=== PATIENT | male | born 1990 | race Caucasian/White ===

== ENCOUNTER 2022-10-27 17:40 | Emergency (ER) | payer MEDICARE, MEDICAID ==
[2022-10-27 18:23] LABS: BASOPHILS # (AUTO) 0.1 10^3/uL (0.0-0.1); BASOPHILS % (AUTO) 0.8 %; EOSINOPHILS # (AUTO) 0.1 10^3/uL (0.0-0.7); EOSINOPHILS % (AUTO) 1.1 %; HCT - HEMATOCRIT 45.8 % (42.0-52.0); HGB - HEMOGLOBIN 16.1 g/dL (14.0-18.0); LYMPHOCYTES # (AUTO) 1.8 10^3/uL (1.5-3.5); LYMPHOCYTES % (AUTO) 25.1 %; MEAN CORPUSCULAR HEMOGLOBIN 31.6 pg (27.0-31.0); MEAN CORPUSCULAR HGB CONC 35.2 g/dL (32.0-36.0); MEAN PLATELET VOLUME 9.8 fL (7.4-11.4); MONOCYTES # (AUTO) 0.8 10^3/uL (0.0-1.0); MONOCYTES % (AUTO) 10.5 %; NEUTROPHILS # (AUTO) 4.5 10^3/uL (1.5-6.6); NEUTROPHILS % (AUTO) 62.4 %; PLT - PLATELET COUNT 257 10^3/uL (130-450); RED BLOOD COUNT 5.09 10^6/uL (4.70-6.10); RED CELL DISTRIBUTION WIDTH 12.1 % (12.0-15.0); WHITE BLOOD COUNT 7.2 x10^3/uL (4.8-10.8)
--- NOTE | 2022-10-27 18:28 | ED Physician Documentation ---
PD HPI MHE - Stated complaint Stated Complaint: MHE - Chief complaint Chief Complaint: MHE - History obtained from History obtained from: Patient - History of Present Illness Primary symptom: Suicidal ideation, Depression Pain level max: 0 Pain level now: 0 - Additional information Additional information: Patient is a 32-year-old male who presents to the emergency department complaining of ongoing depression for several years. He states he has been having increasing suicidal ideation as well. He thinks that he may benefit from inpatient psychiatric care. He states that he has lost his job, his home and all of his financial savings. He is on several medications, but is unsure if they are helping or not. He states he has been feeling very anxious recently. He does have a history of cutting, but is not cutting currently. Patient states that he has not attempted suicide, but has thought about jumping off the bridge. Review of Systems Constitutional: denies: Fever, Chills Respiratory: denies: Cough GI: denies: Nausea, Vomiting, Diarrhea Skin: denies: Rash Musculoskeletal: denies: Back pain PD PAST MEDICAL HISTORY - Past Medical History Past Medical History: Yes Psych: Depression, Anxiety - Present Medications Home Medications: Ambulatory Orders Medication Instructions Recorded Confirmed Buspirone HCl 10 mg PO BID 10/27/22 10/27/22 Gabapentin [Gralise] 300 mg PO BID 10/27/22 10/27/22 Guanfacine HCl [Intuniv] 1 mg PO DAILY 10/27/22 10/27/22 Methylphenidate HCl [Ritalin LA] 36 mg PO BID 10/27/22 10/27/22 Mirtazapine 15 mg PO HS 10/27/22 10/27/22 Topiramate [Topamax] 25 mg PO BID 10/27/22 10/27/22 lamoTRIgine [LaMICtal] 150 mg PO DAILY 10/27/22 10/27/22 risperiDONE [Risperdal] 3 mg PO HS 10/27/22 10/27/22 - Allergies Allergies/Adverse Reactions: Allergies Allergy/AdvReac Type Severity Reaction Status Date / Time Sulfa (Sulfonamide Allergy Nausea Verified 10/27/22 18:02 Antibiotics) - Living Situation Living Arrangement: reports: At home - Social History Does the pt have substance abuse?: No PD ED PE NORMAL - Vitals Vital signs reviewed: Yes - General General: Alert and oriented X 3, No acute distress, Well developed/nourished - HEENT HEENT: PERRL, Moist mucous membranes - Neck Neck: Supple, no meningeal sign - Cardiac Cardiac: RRR, Strong equal pulses - Respiratory Respiratory: No respiratory distress, Clear bilaterally - Abdomen Abdomen: Soft, Non tender, Non distended - Back Back: No spinal TTP - Derm Derm: Warm and dry - Extremities Extremities: No edema, No calf tenderness / cord - Neuro Neuro: Alert and oriented X 3, row boss hoeing 2-12 intact, No motor deficit, No sensory deficit, Normal speech - Psych Psych: Normal mood, Normal affect Results - Vitals Vitals: Vital Signs - 24 hr 10/27/22 10/27/22 17:47 20:31 Temperature 36.6 C 37.1 C Heart Rate 106 H 90 Respiratory 20 16 Rate Blood Pressure 167/99 H 127/73 O2 Saturation 97 95 Oxygen O2 Source Room air - EKG (time done) 2001 EKG releavant findings:: EKG personally interpreted by author of this note. Relevant findings are: Rate: Rate (enter#) (85) Rhythm: NSR [place]: Normal Intervals: Normal MN QRS: Normal Ischemia: Normal ST segments - Labs Labs: Laboratory Tests 10/27/22 10/27/22 10/27/22 18:15 18:15 18:15 WBC 7.2 RBC 5.09 Hgb 16.1 Hct 45.8 MCV 90.0 MCH 31.6 H MCHC 35.2 RDW 12.1 Plt Count 257 MPV 9.8 Neut # (Auto) 4.5 Lymph # (Auto) 1.8 [place] # (Auto) 0.8 Eos # (Auto) 0.1 Baso # (Auto) 0.1 Absolute Nucleated RBC 0.00 Nucleated RBC % 0.0 Sodium 139 Potassium 4.0 Chloride 105 Carbon Dioxide 25 Anion Gap 9.0 BUN 12 Creatinine 0.9 Estimated GFR (MDRD) 98 Glucose 119 H Calcium 9.8 Total Bilirubin 0.4 AST 31 ALT 34 Alkaline Phosphatase 81 Total Protein 7.6 Albumin 4.3 Globulin 3.3 Albumin/Globulin Ratio 1.3 Lipase 40 TSH 1.13 Urine Color Urine Clarity Urine pH Ur Specific [place] Urine Protein Urine Glucose (UA) Urine Ketones Urine Occult Blood Urine Nitrite Urine Bilirubin Urine Urobilinogen Ur Leukocyte Esterase Ur Microscopic Review Urine Culture Comments Salicylates < 6.0 Urine Opiates Screen Ur Oxycodone Screen Urine Methadone Screen Ur Propoxyphene Screen Acetaminophen < 10 L Ur Barbiturates Screen Ur Tricyclics Screen Ur Phencyclidine Scrn Ur Amphetamine Screen U Methamphetamines Scrn U Benzodiazepines Scrn Urine Cocaine Screen U Cannabinoids Screen Ethyl Alcohol < 5.0 SARS-CoV-2 (PCR) 10/27/22 10/27/22 18:30 18:30 WBC RBC Hgb Hct MCV MCH MCHC RDW Plt Count MPV Neut # (Auto) Lymph # (Auto) [place] # (Auto) Eos # (Auto) Baso # (Auto) Absolute Nucleated RBC Nucleated RBC % Sodium Potassium Chloride Carbon Dioxide Anion Gap BUN Creatinine Estimated GFR (MDRD) Glucose Calcium Total Bilirubin AST ALT Alkaline Phosphatase Total Protein Albumin Globulin Albumin/Globulin Ratio Lipase TSH Urine Color YELLOW Urine Clarity CLEAR Urine pH 7.0 Ur Specific [place] 1.010 Urine Protein NEGATIVE Urine Glucose (UA) NEGATIVE Urine Ketones NEGATIVE Urine Occult Blood NEGATIVE Urine Nitrite NEGATIVE Urine Bilirubin NEGATIVE Urine Urobilinogen 0.2 (NORMAL) Ur Leukocyte Esterase NEGATIVE Ur Microscopic Review NOT INDICATED Urine Culture Comments NOT INDICATED Salicylates Urine Opiates Screen NEGATIVE Ur Oxycodone Screen NEGATIVE Urine Methadone Screen NEGATIVE Ur Propoxyphene Screen NEGATIVE Acetaminophen Ur Barbiturates Screen NEGATIVE Ur Tricyclics Screen NEGATIVE Ur Phencyclidine Scrn NEGATIVE Ur Amphetamine Screen NEGATIVE U Methamphetamines Scrn NEGATIVE U Benzodiazepines Scrn NEGATIVE Urine Cocaine Screen NEGATIVE U Cannabinoids Screen NEGATIVE Ethyl Alcohol SARS-CoV-2 (PCR) NOT DETECTED PD Medical Decision Making - ED course Complexity details: reviewed results, re-evaluated patient, considered differential, d/w patient, d/w sustainable design consultant ED course: 32-year-old male with suicidal ideation and depression. Medically clear for psychiatric care. No acute findings on CBC, ER abdominal panel, urine toxicol ogy, blood toxicology or urinalysis. Telepsychiatry was consulted, Dr. Snell. Recommends inpatient treatment. Patient is voluntary. We will attempt to look for placement. [facility] except the patient, Dr. Johnson. COBRA forms completed. Patient will be transferred. This document was made in part using voice recognition software. While efforts are made to proofread this document, sound alike and grammatical errors may occur. Departure - Departure Disposition: 65 Psych Hosp/Unit DC/Xfer Clinical Impression: Suicidal ideation Depression Qualifiers: Depression Type: unspecified Qualified Code(s): F32.A - Depression, unspecified Condition: Stable
[2022-10-27 18:33] LABS: MUDS CUTOFF CONCENTRATIONS CUTOFF CONC BELOW:
[2022-10-27 18:36] LABS: ACETAMINOPHEN < 10 ug/mL (10-30); ALBUMIN 4.3 g/dL (3.2-5.5); ALBUMIN/GLOBULIN RATIO 1.3 (1.0-2.2); ALKALINE PHOSPHATASE 81 IU/L (42-121); ALT ALANINE AMINOTRANSFERASE 34 IU/L (10-60); AST ASPARTATE AMINOTRANSFERASE 31 IU/L (10-42); BILIRUBIN,TOTAL 0.4 mg/dL (0.2-1.0); BUN - BLOOD UREA NITROGEN 12 mg/dL (6-20); CALCIUM 9.8 mg/dL (8.5-10.3); CARBON DIOXIDE - CO2 25 mmol/L (21-32); CHLORIDE 105 mmol/L (101-111); CREATININE 0.9 mg/dL (0.6-1.2); ETOH - ETHANOL < 5.0 mg/dL; GFR - MDRD 98 (>89); GLUCOSE 119 mg/dL (70-100); LIPASE 40 U/L (22-51); SALICYLATE < 6.0 mg/dL; SODIUM 139 mmol/L (135-145); TOTAL PROTEIN 7.6 g/dL (6.7-8.2)
[2022-10-27 18:44] LABS: BILIRUBIN,URINE NEGATIVE (NEGATIVE); GLUCOSE, URINE (UA) NEGATIVE (NEGATIVE); KETONES,URINE (UA) NEGATIVE (NEGATIVE); LEUKOCYTE ESTERASE, URINE NEGATIVE (NEGATIVE); NITRITE,URINE NEGATIVE (NEGATIVE); OCCULT BLOOD,URINE NEGATIVE (NEGATIVE); PROTEIN,URINE NEGATIVE (NEGATIVE); UROBILINOGEN,URINE 0.2 (NORMAL) E.U./dL (NORMAL)
[2022-10-27 18:47] LABS: CLARITY,URINE CLEAR (CLEAR)
[2022-10-27 18:56] LABS: AMPHETAMINE SCREEN,URINE NEGATIVE (NEGATIVE); BARBITURATE SCREEN,UR NEGATIVE (NEGATIVE); BENZODIAZEPINES SCREEN, URINE NEGATIVE (NEGATIVE); COCAINE SCREEN URINE NEGATIVE (NEGATIVE); METHADONE SCREEN, URINE NEGATIVE (NEGATIVE); METHAMPHETAMINES SCREEN, URINE NEGATIVE (NEGATIVE); OPIATE SCREEN, URINE NEGATIVE (NEGATIVE); OXYCODONE SCREEN, URINE NEGATIVE (NEGATIVE); PROPOXYPHENE SCREEN, URINE NEGATIVE (NEGATIVE); THC CANNABINOID SCREEN, URINE NEGATIVE (NEGATIVE); TRICYCLIC ANTIDEPRESSANT,URINE NEGATIVE (NEGATIVE)
[2022-10-27] MEDS: DULoxetine 20 MG CAPSULE PO SCH (19:52)
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
[2022-10-27 22:22] VITALS: BP 164/95
== END 2022-10-27 23:05 ==
LOC: ED 17:40
DX: F33.2 Major depressive disorder, recurrent severe without psychotic features (principal); Z20.822 Contact with and (suspected) exposure to COVID-19
CPT/HCPCS: 36415; 80053; 80306; 80307; 81003; 83690; 84443; 85025; 87635; 93005; 99285; A9270; G0425; G0480; Q3014; 80320; 80329; 81001; 87086

== ENCOUNTER 2024-04-26 15:18 | Outpatient (CLI) | payer MEDICARE, MEDICAID ==
--- NOTE | 2024-04-26 15:42 | Sleep Patient Instructions ---
Sleep Center Visit Summary - Patient Visit Information Reason for Visit: Initial consult for evaluation of sleep disordered breathing and other sleep issues. - Patient Instructions Instructions Attached: Sleep Study, Sleep Study Home Monitor Additional Instructions: You will be completing a sleep study, either an in-lab polysomnography (PSG) or home sleep study (HST). You will follow-up in the sleep care office after the sleep study is completed to hear the results and talk about therapy, if needed. You will be called by our office staff to schedule this appointment, but you may contact us with any questions. - Clinic Information Contact: [facility] [address] [place] [id number] [email or web address] T: [phone]
--- NOTE | 2024-04-26 15:46 | SLEEP CARE CONSULTATION ---
Information from patient questionnaire entered by Scotty Snell. I have reviewed and concur with the information entered by Scotty Snell. This document represents the service I personally performed and the decisions made by me, Radha Tijerina ARNP. History of Present Illness Service Date and Time: 04/26/2024 1518 Reason for Visit: New patient Chief Complaint: reports: Excessive daytime sleepiness Date of Onset: 2011 Usual bedtime: MIDNIGHT Time it takes to fall asleep: 30 MIN Snores at night: Yes (I think so) Observed to quit breathing while asleep: No Sleeps alone due to snoring: No (N/A) Number of times waking at night: 1 Reasons for waking at night: reports: Bathroom. denies: Choking, Snoring, Gasping for air Toss, Turn, or Twitch while sleeping: No (Not sure) Recalls having dreams: Yes Usually gets out of bed at: Noon Feels refreshed in the morning: Yes (Somewhat) Morning headache: No Sleepy or fatigued during the day: Yes (Sleepy) Ever fallen asleep while driving: No Takes day naps: Yes (on days off, 1-2 times a day) Dreams during day naps: Yes Prior sleep studies: Yes Year and Where: 2011 [facility] - neg Additional HPI information: I had the pleasure of seeing PURVI DUVAL today regarding the possibility of him having a sleep disorder. His current complaint is excessive daytime sleepiness. 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 His father encouraged him to continue but he hurt himself more. He says since this time he is having problems with his sleep. He says he was going to college and had to go out to his car to take a nap between classes to be able to get through the day. Currently, he is very tired during the day but does not have to have so many naps. He has low energy. He is taking Nuvigil daily but does not feel it is doing much for him. He does not feel it is effective in keeping him awake anymore. He says he knows he snores. He has gained about 30 pounds in the last 5 years. He said he had a previous sleep study which was negative for sleep disordered breathing. - Parasomnia Symptoms Ever been unable to move upon waking from sleep: No Walks in sleep: No Talks in sleep: No Ever acted out dreams in sleep: No Ever felt weak in the knees when startled or emotional: No Bothered by creepy, crawly, restless sensations in legs: No Problems with memory or concentration: Yes (Somewhat) Subjective Initial [place] Sleepiness Scale score: 12 (04/26/24) Past Medical History Past Medical History: reports: Other (High cholesterol; low testosterone) Social History The patient's occupation is unemployed. Patient is single and lives in [place]. Have you smoked in the past 12 months: Yes (vaped) Years of smokin Alcohol use: No Caffeine use: Yes Caffeine amount and frequency: Can a day Family History Family history of sleep disordered breathing: Yes Family Hx Sleep Apnea: Father: Snoring, Sleep apnea - Untreated Allergies and Home Medications Known drug allergies: Yes (Sulfa) Drug allergies reviewed: Yes Home medication list reviewed: Yes (Nuvigil) Allergy and home medication list: Allergies Sulfa (Sulfonamide Antibiotics) Allergy Nausea Review of Systems Weight gain over past 5 years: 30 Cardiovascular: reports: high blood pressure Gastrointestinal: denies: heartburn Neurological: denies: headaches Psychiatric: denies: anxiety, depression Ear/Nose/Throat: denies: tonsillectomy Physical Exam Vital signs obtained and entered by: Radha Alexander NP Blood Pressure: 142/105 (pt rushed to get here) Cuff size: long (left arm) Heart Rate: 91 O2 Saturation: 96 Height: 5 ft 10 in Weight: 277 lb 9.6 oz Body Mass Index: 39.8 BMI Classification: Obese Neck circumference: 18 Mouth and throat: narrow oropharynx Soft palate: long Hard palate: normal Uvula: normal Uvula visualization: 0% Mallampati Class IV Tongue: normal in size Tonsils: 1+ Neck: normal w/o lymphadenopathy or thyromegaly Heart: regular rate and rhythm Lungs: clear bilaterally Impression and Plan 1. Suspected Obstructive Sleep Apnea-Hypopnea Syndrome, as suggested by a history of loud and irregular snoring, unrefreshed sleep, cognitive impairment, and excessive daytime sleepiness. Narrow oropharynx and obesity are common predisposing factors for obstructive sleep apnea-hypopnea syndrome. I recommend proceeding to polysomnography to confirm the diagnosis and to assess severity. If the patient has significant sleep disordered breathing, a manual CPAP titration study will also be performed to find the optimal treatment pressure. I informed the patient of what the sleep studies involve and after some discussion, obtained agreement to proceed. The pathophysiology of obstructive sleep apnea-hypopnea syndrome was discussed with the patient and health risks of cardiovascular and cerebrovascular disease if not treated. Risks of drowsy driving discussed in detail and patient advised to avoid long distance driving and to pullboat engineer at the first sign of drowsiness. Patient agreed to plan. * Schedule polysomnography/HST * Avoid long distance driving or driving when feeling sleepy. * Avoid alcohol, sedative and muscle relaxant around bedtime. * Attempt to lose weight. * Review instructions provided by trained office staff on how to prepare for the sleep study. * Return for follow-up after sleep study completed. Counseling Topics: Weight loss health impact Plan: PSG/HST and followup Visit Type: In Office Time Spent with Patient (minutes): 24 Provider Statement: I spent 100% of the Face to Face Visit with the patient with greater than 50% spent counseling the patient and coordination of care.
[2024-04-26 15:56] VITALS: BP 142/105; O2SAT 96
== END 2024-04-26 15:19 | disposition home or self-care (01) ==
LOC: SC 15:18
PROVIDERS: ATTEND Nurse Practitioner Family
DX: G47.10 Hypersomnia, unspecified (principal); R06.83 Snoring; F17.290 Nicotine dependence, other tobacco product, uncomplicated; G47.8 Other sleep disorders; R41.89 Other symptoms and signs involving cognitive functions and awareness; E66.9 Obesity, unspecified; Z68.39 Body mass index [BMI] 39.0-39.9, adult
CPT/HCPCS: 99202; G0463; 99212